=== PATIENT | male | born 1945 | race Caucasian/White ===

== ENCOUNTER 2016-11-05 15:18 | Emergency (ER) | payer MEDICARE, OTHER ==
[~2016-11-05] VITALS: Ht 177.8 cm; Wt 103.6 kg
[~2016-11-05 15:18] MED LIST: FISH1CAP59 PO; LEVO150T69 PO; LISI-15 PO; METF-200 PO; MULT-795 PO
[2016-11-05 15:20] VITALS: Ht 177.8 cm; Wt 103.6 kg
--- NOTE | 2016-11-05 15:29 | ERPDOC ---
Departure Disposition Decision Date: Nov 05, 2016 Disposition Decision Time: 16:30 Disposition: 01 DISCHARGED HOME, SELF-CARE Impression Impression Impression: Primary Impression: Laceration of finger of left hand Encounter type: initial encounter Qualified Codes: S61.219A - Laceration without foreign body of unspecified finger without damage to nail, initial encounter Additional Impression: Fracture of phalanx of finger of left hand Severity: Moderate Condition: Stable Seen By: Mid-level only Referrals: DM DEL ROSARIO DO (Family) Patient Instructions: Finger Fracture (ED), Finger Laceration (ED) Problems/Meds/Labs Reviewed?: Yes Medications reviewed and manag: Yes Additional Instructions: Take the Keflex as prescribed to prevent infection of your fingers. If any increased swelling, tenderness, or drainage then please have your fingers reevaluated. Elevate to help with swelling. Take the [place] as needed for pain. I do want you to wash the lacerations daily with soap and water. Redress with the yellow Xeroform to the abraded skin and cover with gauze and keep this in place. Keep fingers clean and dry. Have the sutures taken out with Dr Brandon office in 10 days. I do want you to follow up with Dr Del Rosario when you get back from your trip so that he can monitor the healing of the thumb. Follow up care ordered?: Yes Mental Status: Alert, Oriented Scripts Cephalexin (Keflex) 500 Mg Capsule 1 CAP PO TID, #21 CAP 0 Refills Prov: ANIKET RICKETTS APRN 11/05/16 Hydrocodone/Acetaminophen ([place] 5-325 Tablet) 5-325 Tablet 1 TAB PO Q6H Y for PAIN, #12 TAB 0 Refills Prov: ANIKET RICKETTS APRN 11/05/16 HPI - Skin General General Chief Complaint: Laceration Stated Complaint: HAND LACERATION Time Seen by Provider: 15:24 Source: patient Exam Limitations: no limitations HPI - Skin General Initial Comments He was cutting some wood today with a saw to make something for his upcoming fishing trip. He cut his left thumb pad and the left index finger on the saw. He presents to Er for management of the laceration. Unknown last tetanus vaccination. He does have sensation to the distal fingertip and full ROM of the fingers. Occurred At: home Onset: Rapid Duration: 1 hr Severity: moderate Location: extremities (left index finger and thumb) 1 - laceration 2 - laceration throught fingernail 3 - abrasion/laceration on the pad of the thumb Possible Cause: no cause identified Associated Symptoms: denies symptoms Hx of Similar Symptoms: No Allergies: Coded Allergies: No Known Drug Allergies (Unverified Adverse Reaction, Unknown, 11/05/16) Past History Past Medical History Metabolic: diabetes Surgical History General: exploratory laparotomy, other (partial thyroidectomy) Family History Family History: Negative Vaccines Hx Influenza Vaccination: Yes (APR 2013) Hx Pneumococcal Vaccination: No Hx Tetanus Diptheria: No Hx Tetanus, Diptheria, Pertuss: No Social History Smoking Status: Never smoker Substance Use Type: does not use Alcohol Intake: none Review of Systems Constitutional Constitutional: DENIES: chills, dizziness, fever, weakness Musculoskeletal General: pain (left thumb and index finger) Neurological General: DENIES: numbness, tingling, weakness Physical Exam General General Nourishment: well nourished, well developed, appears stated age, no acute distress, adult General Body Habitus: well groomed Vitals and Pain First Documented Vital Signs Date Time Temp Pulse Resp B/P Pulse Ox O2 Delivery O2 Flow Rate FiO2 11/05/16 15:20 98.2 70 17 141/73 96 Room Air Weight: Kilograms: 103.600 Height (feet): 5 Height (inches): 10.00 Triage Pain Scale: RN VS reviewed by Provider: Yes Normal Exams: Neurologic: Patient is alert, and oriented Psychiatric: Patient exhibits, appropriate attention, emotion and affect Musculoskeletal (brief) Musculoskeletal Brief: NOT FOUND: deformity, loss of motion (Full ROM of the thumb and index finger at the DIP and PIP and MCP joints. ), tenderness Integumentary (brief) Integumentary Brief: FOUND: dry, other (large abrasion/laceration to the left thumb pad and the distal index finger. Cap refill to both fingers is <3 seconds. Denies any numbness/tingling. ), pink, warm Differential Diagnoses Considering: Laceration, Other (tendon injury, open fracture) Procedures Procedures Performed Procedures Performed: Laceration Repair Laceration/Wound Repair Wound/Laceration Repair #1: Wound Location: upper extremity (left index finger) Wound Length (cm): 1.5 Depth, Shape: subcutaneous, linear, tissue avulsed, contused tissue Explored: clean Irrigated: saline Prep: chlorasept Anesthesia: 1% Lidocaine Volume Anesthetic (ccs): 1 Type of Block: local Repaired With: Sutures Suture Size: 5:0 Suture Type: prolene Number of Sutures: 4 Layer Closure?: No Progress I did attempt to remove part of the fingernail that was broken but the underlying tissue was pulling away from the subcut. tissues. Did suture the nail down to stablize the tissue and will have him follow up for possible removal of the nail that is no longer connected to the rest of the nail. Wound/Laceration Repair #2: Wound Location: upper extremity (left thumb) Wound Length (cm): 3 Depth, Shape: subcutaneous, stellate Explored: clean Irrigated: saline Prep: chlorasept Anesthesia: 1% Lidocaine Volume Anesthetic (ccs): 1 Type of Block: local Repaired With: Sutures Suture Size: 5:0 Suture Type: prolene Number of Sutures: 4 Layer Closure?: No Progress I did suture back together the most distal aspect of the laceration. The more proximal aspect was abraded and had much tissue missing. Will have him do daily wound care to aid with healing. Progress Results/Orders Orders Procedure Category Date Status Time Lidocaine 1% PHA 11/05/16 Complete (Xylocaine 1%) 15:30 Hand Left 3 View RAD 11/05/16 Resulted Cephalexin Capsule PHA 11/05/16 Complete (Keflex) 15:45 Tetanus + Diphtheria PHA 11/05/16 Complete Toxoid (Tenivac) 16:45 Medications Current ED Medications Lidocaine HCl (Xylocaine 1%) 100 mg O ONCE INFIL Last administered on 15:41; Start 11/05/16 at 15:30; Stop 11/05/16 at 15:31; Status DC Cephalexin HCl (Keflex) 500 mg O ONCE PO Last administered on 11/05/16 15:50 ; Start 11/05/16 at 15:45; Stop 11/05/16 at 15:46; Status DC Tetanus/ Diphtheria Toxoids Adsorbed (Tenivac) 0.5 ml O ONCE IM Last administered on 11/05/16 16:40; Start 11/05/16 at 16:45; Stop 11/05/16 at 16:46 ; Status DC Progress Progress He is leaving to go out of town on a fishing trip tomorrow. I did advise that he was these areas daily with soap and water and to keep them clean and dry. Will have him start on Keflex today due to the fracture as well as the extensive open skin. I did dress the open areas with xeroform dressing, Telfa, and gauze. I did show his how to dress this and will have him do this twice daily. I did also advise that he follow up with Dr Del Rosario this week for reevaluation of the healing. Xray Xray : Reason for Exam: saw injury to finger and thumb Xray: Hand L Interpretation: Abnormal (fracture to distal aspect of the distal phalanx on the left index finger) ANIKET RICKETTS APRN Nov 05, 2016 15:29
[2016-11-05] MEDS ORDERED: LIDOCAINE 1% (10mg/ml) 30ml SDV INFIL ONE (15:30)
--- NOTE | 2016-11-05 15:37 | NUR ---
XRAY RADIOLOGY AT BEDSIDE FOR PORTABLE HAND XRAY
[2016-11-05] MEDS ORDERED: CEPHALEXIN 500 MG CAPSULE PO ONE (15:45)
[2016-11-05] MEDS ORDERED: LEVO137T2 PO (15:49)
[2016-11-05] MEDS ORDERED: MULT1TAB69 PO (15:50)
[2016-11-05] MEDS ORDERED: ASPI81TA2 PO (15:50)
[2016-11-05] MEDS ORDERED: DAPA5TAB PO (15:51)
--- NOTE | 2016-11-05 16:27 | DI ---
Indication: ITS.REASON: left thumb and index finger laceration PROCEDURE: HAND LEFT 3 VIEW: Encounter: Initial Comparison: None Findings: Minimally displaced fracture of the tuft of the index finger distal phalanx. Chronic appearing deformity of the tuft of the ring finger distal phalanx. No additional acute fracture or dislocation seen. Laceration noted in the soft tissues of the thumb and distal index finger. Impression: Open posttraumatic fracture of the index finger distal phalanx tuft. .
[2016-11-05] MEDS ORDERED: HYDR-4246 PO (16:34)
[2016-11-05] MEDS ORDERED: CEPH-583 PO (16:34)
[2016-11-05 16:43] VITALS: BP 130/77; PULSE 68; RESP 19; TEMP 98.2; O2SAT 96
[2016-11-05] MEDS ORDERED: TETANUS + DIPHTHERIA (Td)(Adult) 0.5ml SYRINGE IM ONE (16:45)
== END 2016-11-05 16:43 | disposition home or self-care (01) ==
LOC: ED 15:18
DX: S61.311A Laceration without foreign body of left index finger with damage to nail, initial encounter (principal); S61.012A Laceration without foreign body of left thumb without damage to nail, initial encounter; S62.631A Displaced fracture of distal phalanx of left index finger, initial encounter for closed fracture; W27.8XXA Contact with other nonpowered hand tool, initial encounter; Y93.D9 Activity, other involving arts and handcrafts; Y92.009 Unspecified place in unspecified non-institutional (private) residence as the place of occurrence of the external cause; Y99.8 Other external cause status
CPT/HCPCS: 12002; 73130; 90471; 90714; 99283; A6222; A9270

== ENCOUNTER 2016-11-22 06:03 | Day surgery (SDC) | payer MEDICARE, OTHER ==
[~2016-11-22] VITALS: Ht 177.8 cm; Wt 101.0 kg
[2016-11-22] VITALS (11 sets, daily range): BP systolic 90–121; BP diastolic 56–82; PULSE 86–119; RESP 12–20; TEMP 97.4–97.6; O2SAT 91–98; Ht 177.8 cm; Wt 101.0 kg
[~2016-11-22 06:03] MED LIST changes: +ASPI81TA2 PO; +DAPA5TAB PO; +LEVO137T2 PO; -LEVO150T69 PO; -MULT-795 PO; +MULT1TAB69 PO
--- OUTSIDE RECORDS SUMMARY | 2016-11-22 06:07 | XMS REPORT | Continuity of Care Document ---
Author Author [facility] Organization [facility] Address Unknown Phone Unavailable Support Name Relationship Address Phone ALLY LLAMAS MD Caregiver [address] [place] [address] Unavailable DM DEL ROSARIO DO Caregiver [address] [facility] [address] [place] [address] Unavailable DONNIE CORBETT Next Of Kin [address] [place], [place] [id number] Insurance Providers Guarantor Gordo Corbett Address [address] [place] [address] Email DENIED 11-05-16 Payer [place] Policy Number [id number] Subscriber's Name Gordo Corbett Relationship 18 Self Group Number PLANN Payer Medicare Policy Number [id number] Subscriber's Name Gordo Corbett Relationship 18 Self Advance Directives Directive Response Recorded Date/Time Advanced Directives Type None 11/05/16 3:20pm Chief Complaint and Reason for Visit Chief Complaint Laceration Reason for Visit Fracture of phalanx of finger of left hand Laceration of finger of left hand Problems Past Problems Medical Problem Onset Date Fracture of phalanx of finger of left hand Unknown Laceration of finger of left hand Unknown Medications Current Home Medications Medication Dose Units Route Directions Days Qty Instructions Start Date Aspirin 81 Mg Tab.chew 81 Mg Oral Bedtime 11/05/16 Cephalexin (Keflex) 500 Mg Capsule 1 Cap Oral Three Times A Day 21 Capsule 11/05/16 Dapagliflozin Propanediol (Farxiga) Unknown Strength Tablet Unknown Dose Oral Daily 11/05/16 Fish Oil/Dha/Epa (Fish Oil 1,200 Mg Fish Oil) 1 Each Capsule 1,200 Mg Oral Twice A Day 08/05/13 Hydrocodone/Acetaminophen ([place] 5-325 Tablet) 5-325 Tablet 1 Tab Oral Every 6 Hours as needed for Pain 12 Tablet 11/05/16 Levothyroxine Sodium 137 Mcg Tablet 137 Mcg Oral Before Breakfast 11/05/16 Lisinopril/Hydrochlorothiazide (Lisinopril-Hctz 20-12.5 Tab) 1 Tab Tablet 2 Tab Oral Daily 08/05/13 Metformin Hcl 500 Mg Tablet 500 Mg Oral Twice Daily With Meals Multivitamin (Multivitamins) 1 Each Tablet 1 Tab Oral Daily 11/05 Social History Social History Problem Response Recorded Date/Time Onset Date Status Chewing Tobacco Status No 08/05/2013 12:42pm Not Applicable Not Applicable Hx Substance Use No 11/05/2016 3:25pm Not Applicable Not Applicable Hx Alcohol Use Y 1X WK 11/05/2016 3:25pm Not Applicable Not Applicable Has the pt used tobacco in the last 12 months No 08/05/2013 12:42pm Not Applicable Not Applicable Query Response Start Date Stop Date Smoking Status Former smoker Hospital Discharge Instructions No hospital discharge instructions. Plan of Care Discharge Date 11/05/16 4:43pm Disposition 01 DISCHARGED HOME, SELF-CARE Condition at Discharge Stable Instructions/Education Provided Finger Fracture (ED) Finger Laceration (ED) Prescriptions See Medication Section Referrals DM DEL ROSARIO DO Address: [address] [place] [address] DR BYRNES [address] [place] [address], [place] [phone] Additional Instructions/Education Take the Keflex as prescribed to prevent infection of your fingers. If any increased swelling, tenderness, or drainage then please have your fingers reevaluated. Elevate to help with swelling. Take the [place] as needed for pain. I do want you to wash the lacerations daily with soap and water. Redress with the yellow Xeroform to the abraded skin and cover with gauze and keep this in place. Keep fingers clean and dry. Have the sutures taken out with Dr Brandon office in 10 days. I do want you to follow up with Dr Del Rosario when you get back from your trip so that he can monitor the healing of the thumb. Care Plan and Goals Physician Care Plan Problem:Finger Lacerations, finger fracture Goal: Follow up with primary care provider Instructions: Take medications and follow care plan as discussed/written Functional Status No functional status results. Allergies, Adverse Reactions, Alerts Allergen Type Severity Reaction Status Last Updated No Known Drug Allergies Adverse Reaction Unknown Active 11/05/16 Immunizations Immunization Event Date Type Not Given Reason Dose Number Lot Number [employer] VIS Given Td (adult), adsorbed 11/05/16 Administered 1 [id number] [employer] 09/15/14 Query Response on File Recorded Date/Time Hx Influenza Vaccination Y APR 2013 08/05/13 12:42pm Hx Pneumococcal Vaccination No 08/05/13 12:42pm Hx Tetanus, Diptheria, Pertussis No 06/16/09 10:24pm Hx Influenza Vaccination Y APR 2013 08/05/13 12:42pm Hx Tetanus Diptheria No 06/16/09 10:24pm Hx Tetanus, Diptheria, Pertussis No 06/16/09 10:24pm Hx Tetanus Toxoid Vaccination No 06/16/09 10:24pm Tetanus Diptheria Vaccine History 11/05/16 11/05/16 4:40pm Tdap Vaccine Hx UNKNOWN 11/05/16 3:22pm Vital Signs Acute Vital Signs Vital Response Date/Time Temperature (Fahrenheit) 98.2 deg F (96.8 - 99.1) 11/05/2016 4:43pm Temperature (Calculated Celsius) 36.56095 degrees C (36.0 - 37.3) 11/05/2016 4:43pm Pulse Rate (adult) 68 bpm (60 - 100) 11/05/2016 4:43pm Respiratory Rate 19 breaths/min (10 - 20) 11/05/2016 4:43pm O2 Sat by Pulse Oximetry 96 % (90 - 100) 11/05/2016 4:43pm Blood Pressure 130/77 mm Hg 11/05/2016 4:43pm Height (Feet) 5 feet 11/05/2016 3:20pm Height (Inches) 10.00 inches 11/05/2016 3:20pm Weight (Kilograms) 103.600 kg 11/05/2016 3:20pm Body Mass Index (BMI) 32.0 11/05/2016 3:20pm Results Name: GORDO CORBETT Unit #: [id number] : 1945 Sex: M Admit Date: Loc / Svc: ED Discharge Date: DIAGNOSTIC IMAGING REPORT Report #: [id number] [facility] DIONY Monsivais Indication: ITS.REASON: left thumb and index finger laceration PROCEDURE: HAND LEFT 3 VIEW: Encounter: Initial Comparison: None Findings: Minimally displaced fracture of the tuft of the index finger distal phalanx. Chronic appearing deformity of the tuft of the ring finger distal phalanx. No additional acute fracture or dislocation seen. Laceration noted in the soft tissues of the thumb and distal index finger. Impression: Open posttraumatic fracture of the index finger distal phalanx tuft. . Procedures No known history of procedures. Encounters Encounter Location Arrival/Admit Date Discharge/Depart Date Attending Provider Departed Emergency Room [facility] 11/05/16 3:18pm 11/05/16 4: 43pm ALLY LLAMAS MD Recent Diagnosis
[2016-11-22] MEDS ORDERED: MIDAZOLAM 5mg/5ml INJECTION ONE ×2 (06:57→07:36)
[2016-11-22] MEDS ORDERED: SALINE FLUSH 10ml SYRINGE ONE (06:57)
[2016-11-22] MEDS ORDERED: FENTANYL 100mcg/2ml INJECTION ONE (06:57)
[2016-11-22] MEDS ORDERED: LR 1,000 ML IV SCH (07:00)
[2016-11-22] MEDS ORDERED: LIDOCAINE 1% (10mg/ml) 2ml SDV INJ ONE (07:00)
[2016-11-22] MEDS ORDERED: ENOXAPARIN 40 MG/0.4 ML INJECTION SQ ONE (08:00)
[2016-11-22] MEDS ORDERED: MIDAZOLAM 5mg/5ml INJECTION IV PRN (08:00)
[2016-11-22] MEDS ORDERED: FENTANYL 100mcg/2ml INJECTION IV PRN (08:00)
[2016-11-22] MEDS ORDERED: METOPROLOL 5mg/5ml INJECTION IV ONE (08:00)
[2016-11-22] MEDS ORDERED: RIVA20TA PO (08:09)
--- NOTE | 2016-11-22 12:49 | OPNOTEF ---
DATE OF PROCEDURE: 11/22/2016 PHYSICIAN: Manjeet Lua DO PROCEDURE: Colonoscopy. INDICATION FOR PROCEDURE History of colon polyps. ASA CLASSIFICATION: 2 DESCRIPTION OF PROCEDURE Consent was signed and on the chart. Routine monitoring with ECG, continuous oximetry and noninvasive blood pressure was performed throughout the procedure. The monitor demonstrated atrial fibrillation which is a new diagnosis for him. Prior to the procedure, the patient was brought to the endoscopy lab where a brief review of his medical history and physical exam was performed. The procedure was described to him and he was agreeable to continue. All questions were answered. He was given IV sedation and placed in left lateral decubitus position. A digital rectal exam revealed a normal size and contour prostate. No masses. The colonoscope was introduced through the anal verge and advanced to the cecum. Upon reaching the cecum, careful inspection of the mucosa was performed. From the cecum through the ascending colon, there were no polyps, masses, lesions or diverticula. He did have diverticulosis throughout the transverse, descending and sigmoid colon. Everything else was normal. IMPRESSION Diverticulosis of the transverse, descending and sigmoid colon. Otherwise normal colonoscopy. RECOMMENDATION 1. Repeat in 10 years consistent with current colon cancer screening guidelines. 2. High-fiber diet. 3. This is an initial diagnosis of atrial fibrillation. I will start him on Xarelto and have him follow with cardiology. JIMENEZ
== END 2016-11-22 08:57 | disposition home or self-care (01) ==
LOC: NSC 06:03
PROVIDERS: ATTEND Internal Medicine
DX: Z12.11 Encounter for screening for malignant neoplasm of colon (principal); K57.30 Diverticulosis of large intestine without perforation or abscess without bleeding; Z86.010 Personal history of colon polyps; I48.91 Unspecified atrial fibrillation; E66.9 Obesity, unspecified; Z68.31 Body mass index [BMI] 31.0-31.9, adult; E11.65 Type 2 diabetes mellitus with hyperglycemia; I10 Essential (primary) hypertension; E78.2 Mixed hyperlipidemia; E03.9 Hypothyroidism, unspecified; J30.9 Allergic rhinitis, unspecified; G47.9 Sleep disorder, unspecified; Z79.84 Long term (current) use of oral hypoglycemic drugs; Z79.82 Long term (current) use of aspirin; Z79.899 Other long term (current) drug therapy; Z87.891 Personal history of nicotine dependence
CPT/HCPCS: 82948; G0121; J1650; J2250; J3010; J7120